=== PATIENT | male | born 1960 ===

== ENCOUNTER 2017-06-11 12:21 | Outpatient (CLI) | payer OTHER ==
[~2017-06-11 12:21] MED LIST: B COMPLEX1 TAB PO; NEXIUM20 MG/PACK; XARELTO 20MG TAB PO
== END 2017-06-11 12:34 | disposition home or self-care (01) ==
LOC: LAB 12:21
DX: D68.52 Prothrombin gene mutation (principal); D68.61 Antiphospholipid syndrome; E72.11 Homocystinuria; E72.12 Methylenetetrahydrofolate reductase deficiency; C73 Malignant neoplasm of thyroid gland; D55.0 Anemia due to glucose-6-phosphate dehydrogenase [G6PD] deficiency; D51.1 Vitamin B12 deficiency anemia due to selective vitamin B12 malabsorption with proteinuria; I80.221 Phlebitis and thrombophlebitis of right popliteal vein; Z86.72 Personal history of thrombophlebitis; K22.70 Barrett's esophagus without dysplasia; I10 Essential (primary) hypertension; K21.0 Gastro-esophageal reflux disease with esophagitis; D50.8 Other iron deficiency anemias; D51.8 Other vitamin B12 deficiency anemias; E03.8 Other specified hypothyroidism